=== PATIENT | male | born 1985 | race Caucasian/White ===

== ENCOUNTER 2016-12-07 20:09 | Emergency (ER) ==
[2016-12-07 20:21] VITALS: BP 153/100
--- NOTE | 2016-12-07 20:35 | PROVIDER DOCUMENTATION ---
HPI-General Adult - General Chief Complaint: Anxiety Stated Complaint: CHEST PAIN Time Seen by Provider: 12/07/16 20:25 Source: patient Allergies/Adverse Reactions: Patient Allergies Allergy/AdvReac Type Severity Reaction Status Date / Time coconut oil Allergy SWELLING Verified 05/20/14 15:09 Home Medications: Home Medication List Medication Instructions Recorded Confirmed Last Taken Type No Home Medications 12/07/16 12/07/16 Unknown History - History of Present Illness -Gen Adult Nature of Presenting Problems: Pt is a 31 y/o male c chief complaint of anxiety. Pt states he was having an anxiety attack prior to arriving at the ER but it resolved. Pt states on arrival, his symptoms resolved and he felt much better. He does not want any further evaluation or treatment and will leave the ER from the waiting room. Pt was calm, alert, oriented. Review of Systems - Adult - REVIEW OF SYSTEMS - ADULT ROS:: ROS per family Constitutional: reports: no symptoms reported Eyes: reports: no symptoms reported Ears, Nose, Mouth & Throat: reports: no symptoms reported Cardiovascular: reports: no symptoms reported Respiratory: reports: no symptoms reported Gastrointestinal: reports: no symptoms reported Genitourinary: reports: no symptoms reported Musculoskeletal: reports: no symptoms reported Integumentary: reports: no symptoms reported Neurological: reports: no symptoms reported Psychiatric: reports: no symptoms reported Endocrine: reports: no symptoms reported Hematologic/Lymphatic: reports: no symptoms reported Allergic/Immunologic: reports: no symptoms reported All Other Systems: Reviewed and Negative Past History - Adult - PAST MEDICAL HISTORY-ADULT Review of Records: reports: Old Records Reviewed, Nursing Assessment Review, Medications Reviewed, Social history reviewed & non-contributory. Major Childhood Illnesses: reports: denies history Cardiovascular: reports: denies history Respiratory: reports: denies history Gastrointestinal: reports: denies history Obstetrical/Gynecological: reports: denies history Genitourinary: reports: denies history Musculoskeletal: reports: denies history Neurological: reports: denies history Endocrine/Immune: reports: denies history Other Conditions: reports: denies history - PRIOR SURGERIES/PROCEDURES Surgical/Procedure History: reports: reviewed, not pertinent - PRIOR HOSPITALIZATIONS Prior Hospitalizations: reports: none - IMMUNIZATION STATUS Childhood Immunizations: See Nurse Assessment Flu Vaccine: See Nurse Assessment - FAMILY HISTORY Family History: reviewed, not pertinent Physical Exam-General - PHYSICAL EXAM-ADULT Initial Vital Signs Reviewed: Yes - CONSTITUTIONAL General Appearance: appears well, alert, no apparent distress - EYES Eyes: PERRL/EOMI, pink conjunctivae, fundi clear, no AV nicking - HEAD, EARS, NOSE, MOUTH & THROAT HENMT: normocephalic/atraumatic, moist mucous membranes, normal ENT inspection - NECK Neck: non-tender - CARDIOVASCULAR Cardiovascular: normal peripheral pulses - CHEST (BREASTS) Chest/Breast: deferred - GASTROINTESTINAL (ABDOMEN) Abdominal Exam: normal bowel sounds Progress - PLAN OF CARE/RESULTS Progress/Plan/Lab Results: Vital Signs - 24 hr 12/07/16 20:15 Temperature 98 F Pulse Rate 132 H Respiratory 24 Rate Blood Pressure 153/100 O2 Sat by Pulse 100 Oximetry Departure - Departure Time of Disposition Order: 20:28 DIAGNOSIS: Anxiety attack Disposition: [address] Medical Emergency: Emergent Condition: Stable Additional Instructions: ED Follow Up Instructions: You have been treated by a care provider in the Emergency Department. These instructions are being provided to you so you can have an understanding of how to care for yourself upon discharge. Upon discharge from the Emergency Department, you are responsible for making arrangements for follow-up care by a physician of your choice. Take all prescribed medications as directed. Return to the Emergency Department immediately for any new or worsening symptoms. You may call the Physician Referral phone number at [phone] to obtain a list of Physicians who are taking new patients. Attestation - Physician/ NIKITA Attestation Patient care was provided by Advanced Practice Provider:: Yes Advanced Practice Provider:: Irving Reyes Advanced Practice Provider documentation review:: The Mid-level provider documentation, treatment plan and medical decision making was reviewed by the physician who agrees with all treatment and medical decision making by the MLP.
== END 2016-12-07 20:50 | disposition left against medical advice (07) ==
LOC: P.ED 20:09
DX: F41.9 Anxiety disorder, unspecified (principal); R07.9 Chest pain, unspecified
CPT/HCPCS: 99282

== ENCOUNTER 2016-12-07 21:02 | Emergency (ER) ==
[2016-12-07 21:17] VITALS: BP 141/110
--- NOTE | 2016-12-07 21:41 | PROVIDER DOCUMENTATION ---
HPI-Psychological Disorder - General Source: patient - History of Present Illness-Psych Onset/Duration: reports: 1-3 hours ago Timing: reports: still present Severity: reports: moderate Situational problems related to:: reports: other (drug use) Psychiatric Complaints: reports: anxiety, restlessness. denies: angry, agitated , hallucinating, hostile, insomnia, suicidal ideation Substance Use: reports: alcohol, marijuana Previous psych related hospitalizations?: No Patient arrived by:: private car Similar Symptoms Previously?: No Recently seen or treated by another doctor?: No <Kenneth Velasquez - Last Filed: 12/07/16 21:36> <Irving Reyes - Last Filed: 12/07/16 22:25> - General Chief Complaint: Return/Recheck Stated Complaint: ANXIETY Time Seen by Provider: 12/07/16 21:36 Allergies/Adverse Reactions: Patient Allergies Allergy/AdvReac Type Severity Reaction Status Date / Time coconut oil Allergy SWELLING Verified 05/20/14 15:09 Home Medications: Home Medication List Medication Instructions Recorded Confirmed Last Taken Type No Home Medications 12/07/16 12/07/16 Unknown History - History of Present Illness-Psych Nature of Presenting Problem: Pt states he has chest pain for 2 hours and is very anxious. States 3am yesterday morning while at a green party he smoked meth for the first time. He admits to smoking weed nearly daily. The chest pain stays in one place on the left side of chest. When the pain was at the worst in his chest pt said he was SOB (Kenneth Velasquez) Review of Systems - Adult - REVIEW OF SYSTEMS - ADULT Constitutional: denies: chills, fever Eyes: reports: no symptoms reported Ears, Nose, Mouth & Throat: reports: no symptoms reported Cardiovascular: reports: chest pain, palpitations. denies: edema, syncope Respiratory: reports: shortness of breath. denies: cough, wheezing Gastrointestinal: reports: no symptoms reported Genitourinary: reports: no symptoms reported Musculoskeletal: reports: no symptoms reported Integumentary: reports: no symptoms reported Neurological: reports: no symptoms reported Psychiatric: reports: no symptoms reported Endocrine: reports: no symptoms reported Hematologic/Lymphatic: reports: no symptoms reported Allergic/Immunologic: reports: no symptoms reported All Other Systems: Reviewed and Negative <Kenneth Velasquez - Last Filed: 12/07/16 21:36> Past History - Adult - PAST MEDICAL HISTORY-ADULT Review of Records: reports: Old Records Reviewed, Nursing Assessment Review Major Childhood Illnesses: reports: denies history Cardiovascular: reports: denies history Respiratory: reports: denies history Gastrointestinal: reports: denies history Obstetrical/Gynecological: reports: denies history Genitourinary: reports: denies history Musculoskeletal: reports: denies history Neurological: reports: denies history Endocrine/Immune: reports: denies history Other Conditions: reports: denies history - PRIOR SURGERIES/PROCEDURES Surgical/Procedure History: reports: reviewed, not pertinent - PRIOR HOSPITALIZATIONS Prior Hospitalizations: reports: none - IMMUNIZATION STATUS Childhood Immunizations: See Nurse Assessment Flu Vaccine: See Nurse Assessment - FAMILY HISTORY Family History: reviewed, not pertinent <Kenneth Velasquez - Last Filed: 12/07/16 21:36> Physical Exam-Psych Focus - Physical Exam-Psych Initial Vital Signs Reviewed: Yes Appearance: appropriate appearance, appropriate insight, anxious Neurological: alert, anxious Behavior/Eye Contact/Speech: cooperative, normal speech, avoids eye contact Thoughts/Hallucinations: normal thought pattern, no apparent hallucination HENMT: moist mucous membranes, normal ENT inspection, TMs normal, pharynx normal Neck: non-tender, full range of motion, supple, normal inspection Respiratory: lungs clear, normal breath sounds, no pleuratic chest pain, no respiratory distress, no accessory muscle use Cardiovascular: normal peripheral pulses, tachycardia, other Abdominal Exam: normal bowel sounds, non tender, soft Back Exam: normal inspection, no CVA tenderness, no vertebral tenderness Extremity: normal range of motion, non-tender, normal gait, normal inspection Integumentary: normal color, normal turgor, warm/dry, blanching (chest wall) <Kenneth Velasquez - Last Filed: 12/07/16 21:36> Progress <Kenneth Velasquez - Last Filed: 12/07/16 21:36> - REASSESSMENT Reassessment #1 Time Reassessed: 22:25 (Pt refused labs or imaging studies and left the ER.) <Irving Reyes - Last Filed: 12/07/16 22:25> - PLAN OF CARE/RESULTS Progress/Plan/Lab Results: Orders Category Date Time Status Cardiac Monitoring DIRECTED Care 12/07/16 21:56 Active Oxygen Therapy- ED Nursing DIRECTED Care 12/07/16 21:56 Active Saline Loc NOW Care 12/07/16 21:56 Active CHEST-2 VIEWS [RAD] Stat Exams 12/07/16 21:56 Ordered CBC WITH ELECTRONIC DIFF [HEME] Stat Lab 12/07/16 21:56 Ordered CK PROFILE [SP CHEM] Stat Lab 12/07/16 21:56 Ordered COMPREHENSIVE METABOLIC PANEL [CHEM] Stat Lab 12/07/16 21:56 Ordered D-DIMER PL [COAG] Stat Lab 12/07/16 21:56 Ordered MAGNESIUM [CHEM] Stat Lab 12/07/16 21:56 Ordered PRO B-NATRIURETIC PEPTIDE Stat Lab 12/07/16 21:56 Ordered [address]IME WITH INR PL [COAG] Stat Lab 12/07/16 21:[address] [COAG] Stat Lab 12/07/16 21:56 Ordered TROPONIN T Stat Lab 12/07/16 21:56 Ordered UDS [URINE DRUG SCREEN PL] Stat Lab 12/07/16 21:56 Uncollected Aspirin Med 12/07/16 21:56 Discontinued 325 mg PO STAT STA EKG [EKG] Stat Ther 12/07/16 21:17 Ordered Vital Signs - 24 hr 12/07/16 21:12 Temperature 98 F Pulse Rate 133 H Respiratory 22 Rate Blood Pressure 141/110 O2 Sat by Pulse 98 Oximetry (Irving Reyes) Departure <Kenneth Velasquez - Last Filed: 12/07/16 21:36> - Departure Time of Disposition Order: 22:24 Certified Medical Emergency: Emergent <Irving Reyes - Last Filed: 12/07/16 22:25> - Departure DIAGNOSIS: Methamphetamine abuse, Anxiety attack Disposition: AGAINST MEDICAL ADVICE 07 Condition: Stable Attestation - Scribe Verification/Attestation Scribe:: Kenneth Velasquez Acting as Scribe for:: Irving Reyes Scribe documention review:: This chart was documented by a scribe and accurately reflects the service the provider performed and the decisions made by the provider. <Kenneth Velasquez - Last Filed: 12/07/16 21:36> - Physician/ NIKITA Attestation Patient care was provided by Advanced Practice Provider:: Yes Advanced Practice Provider:: Irving Reyes Advanced Practice Provider documentation review:: The Mid-level provider documentation, treatment plan and medical decision making was reviewed by the physician who agrees with all treatment and medical decision making by the MLP. <Irving Reyes - Last Filed: 12/07/16 22:25> Physician Attestation - Physician Attestation I, the provider, attest to the following statement:: Irving Reyes Physician documentation Attestation:: This documentation recorded by the scribe accurately reflects the service I personally performed and the decisions made by me. <Irving Reyes - Last Filed: 12/07/16 22:25>
[2016-12-07] MEDS ORDERED: ASPIRIN PO STA (21:56)
--- NOTE | 2016-12-07 22:45 | ED EKG INTERP ---
EKG Interpretation - EKG Time of EKG reading by physician:: 21:23 EKG Read and Signed by:: Femi Lucas EKG Interpretation (*Must complete 3 of following elements*): Normal Rate: 100 Rhythm: NSR [place]: normal QRS: normal [place] Interval: normal ST Wave: normal Attestation - Scribe Verification/Attestation Scribe:: Kenneth Velasquez Acting as Scribe for:: Femi Lucas Scribe documention review:: This chart was documented by a scribe and accurately reflects the service the provider performed and the decisions made by the provider.
--- NOTE | 2016-12-08 02:02 | EKG Report ---
Test Performed on : 12/07/2016 9:23:13 PM Test Reason : tachycardia drug use chest discomfort Blood Pressure : / mmHG Vent. Rate : 100 BPM Atrial Rate : 100 BPM P-R Int : 154 ms QRS Dur : 088 ms QT Int : 332 ms P-R-T Axes : 072 077 053 degrees QTc Int : 428 ms Normal sinus rhythm. Normal ECG No previous ECGs available Unconfirmed Result
== END 2016-12-08 00:34 | disposition left against medical advice (07) ==
LOC: P.ED 21:02
DX: F41.9 Anxiety disorder, unspecified (principal); F15.10 Other stimulant abuse, uncomplicated; R07.89 Other chest pain; R45.1 Restlessness and agitation; R00.2 Palpitations; R00.0 Tachycardia, unspecified
CPT/HCPCS: 93005; 99282